=== PATIENT | male | born 1980 | race Caucasian/White ===

== ENCOUNTER → 2020-02-17 | Outpatient (CLI) | payer BC ==
--- NOTE | 2020-02-17 12:57 | Diagnostic Imaging Report ---
MRI RT LOWER EXT JOINT W/O TECHNIQUE: Multiplanar, multisequence MR imaging of the right knee was performed without contrast. COMPARISON: Right knee radiographs from 02/05/2020 INDICATION: Right knee pain after injury FINDINGS: MENISCI Medial meniscus: There is a vertical longitudinal tear in the peripheral 1/3 of the posterior horn of the medial meniscus. Lateral meniscus: Normal. LIGAMENTS ACL: Complete rupture of the ACL near its femoral origin. PCL: Intact. MCL: Thickening with increased signal in the proximal aspect of the ACL. Also, has edema on both sides of the ligament, indicative of a high-grade sprain/partial thickness tear. LCL: The lateral collateral ligamentous complex is intact. EXTENSOR MECHANISM The extensor mechanism is intact. CARTILAGE Medial compartment: Medial compartment articular cartilage is well preserved without focal high-grade chondromalacia. Lateral compartment: The lateral compartment articular cartilage is preserved without high-grade chondromalacia. Patellofemoral compartment: Very minimal degenerative chondral fibrillation in the medial and lateral patellar facets. BONE Bone contusion is present in the posterior aspect of the lateral tibial plateau. No macroscopic fracture lines. SOFT TISSUE Moderate-sized knee joint effusion. No Flores's cyst. IMPRESSION: 1. Complete rupture of the ACL. 2. Vertical longitudinal tear in the posterior horn of the medial meniscus. 3. No acute chondral injury. 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 4. Bone contusion in the posterior aspect of the lateral tibial plateau. Dictated by: Dictated on workstation # [id number]
== END ==
LOC: RAD 09:09
PROVIDERS: ATTEND Nurse Practitioner
DX: S83.511A Sprain of anterior cruciate ligament of right knee, initial encounter (principal); S83.221A Peripheral tear of medial meniscus, current injury, right knee, initial encounter; M23.611 Other spontaneous disruption of anterior cruciate ligament of right knee; M22.41 Chondromalacia patellae, right knee; S80.01XA Contusion of right knee, initial encounter; X58.XXXA Exposure to other specified factors, initial encounter
CPT/HCPCS: 73721

== ENCOUNTER → 2022-12-01 | Outpatient (CLI) | payer BC ==
[~2022-12-01] MED LIST: FLUO20CA42 PO; HYDR-3817 PO; IOHEXOL 350 MG/ML 100 ML (OMNIPAQUE 350) VIAL IV ONE; NF-SILD25T PO; NS 100 ML (IVPB) BAG IV ONE
[2022-12-01 11:45] LABS: HEMATOCRIT 44 % (40-54); HEMOGLOBIN 15.7 g/dL (13.3-17.7); MEAN CORPUSCULAR HEMOGLOBIN 30 pg (25-34); MEAN CORPUSCULAR HGB CONC 35 g/dL (32-36); MEAN CORPUSCULAR VOLUME 86 fL (80-99); MEAN PLATELET VOLUME 10.3 fL (9.0-12.2); PLATELET COUNT 309 10^3/uL (130-400); WHITE BLOOD COUNT 11.4 10^3/uL (4.3-11.0)
--- NOTE | 2022-12-01 12:09 | Diagnostic Imaging Report ---
PROCEDURE: CT pelvis with contrast. TECHNIQUE: Oral and intravenous contrast were administered with pelvic CT performed. Auto Exposure Controls were utilized during the CT exam to meet ALARA standards for radiation dose reduction. INDICATION: Pelvic and perirectal pain, history of abscess. FINDINGS: There is a rim-enhancing fluid collection consistent with a perianal abscess left of midline measuring 2.5 x 1.1 cm maximal. No true pelvic intra or retroperitoneal fluid collection. There are noninflamed diverticular changes to the sigmoid colon. There is no appendicitis. There is no pelvic small or large bowel obstruction. The fecal load was not pathologically elevated. Prostate and urinary bladder unremarkable. The bony pelvis unremarkable. IMPRESSION: Left perianal abscess. The intra and retroperitoneal true pelvis unremarkable. No other significant finding. Dictated by: Dictated on workstation # [id number]
== END ==
LOC: RAD 11:13
PROVIDERS: ATTEND Surgery
DX: K61.0 Anal abscess (principal)
CPT/HCPCS: 36415; 72193; 85027

== ENCOUNTER 2022-12-02 15:34 | Outpatient (CLI) | payer BC ==
[~2022-12-02] VITALS: Ht 182.8 cm; Wt 97.7 kg
[2022-12-03] MEDS ORDERED: FLUO20CA42 PO (08:09)
[2022-12-03] MEDS ORDERED: NF-SILD25T PO (08:09)
[2022-12-03] MEDS ORDERED: HYDR-3817 PO (10:54)
== END 2022-12-03 08:25 ==
LOC: PREOP 15:34
PROVIDERS: ATTEND Surgery
DX: Z01.818 Encounter for other preprocedural examination (principal)